=== PATIENT | male | born 1930 | race Caucasian/White ===

== ENCOUNTER → 2016-07-26 | Outpatient (CLI) | payer MEDICARE ==
[~2016-07-26] MED LIST: ACID1TAB7 PO; AMOX1TAB12 PO; ASPI-621 PO; ATOR40TA78 PO; CHOL400T2 PO; FENO160T PO; FLUT1AER INH; FURO-93 PO; GABA300C10 PO; HYDR-3343 PO; IPRA3AMP HHN; LISI-467 PO; LUTE20TA PO; METO25TA35 PO; MULT-464 PO; OMEG500C3 PO; OMEP-110 PO; POTA10CA PO; PRED5TAB PO; SUCR1ORA2 PO; TEMA15CA6 PO; TERA5CAP3 PO; TICA90TA PO; TIOT18CA INH; TRAM50TA2 PO; WARF5TAB7 PO; ZINC50TA28 PO
== END | disposition home or self-care (01) ==
LOC: CFH 14:21
PROVIDERS: ATTEND Internal Medicine Critical Care Medicine
DX: J44.9 Chronic obstructive pulmonary disease, unspecified (principal)
CPT/HCPCS: 71020

== ENCOUNTER → 2016-11-05 | Outpatient (CLI) | payer MEDICARE | END | disposition home or self-care (01) | LOC: RAD 09:58 | PROVIDERS: ATTEND Nurse Practitioner Family | DX: S33.39XA Dislocation of other parts of lumbar spine and pelvis, initial encounter (principal); M47.896 Other spondylosis, lumbar region; M25.78 Osteophyte, vertebrae; M41.86 Other forms of scoliosis, lumbar region; Z98.1 Arthrodesis status; X58.XXXA Exposure to other specified factors, initial encounter; Y93.89 Activity, other specified; Y92.89 Other specified places as the place of occurrence of the external cause; Y99.8 Other external cause status | CPT/HCPCS: 72110 ==

== ENCOUNTER → 2017-09-18 | Outpatient (CLI) | payer MEDICARE ==
[~2017-09-18] MED LIST changes: -SUCR1ORA2 PO; +SUCR1ORA5 PO; +WARF-36 PO; -WARF5TAB7 PO
== END | disposition home or self-care (01) ==
LOC: CFH 10:54
PROVIDERS: ATTEND Nurse Practitioner Family
DX: S53.145D Lateral dislocation of left ulnohumeral joint, subsequent encounter (principal); W19.XXXD Unspecified fall, subsequent encounter

== ENCOUNTER → 2020-03-04 | Outpatient (CLI) | payer MEDICARE ==
[~2020-03-04] MED LIST changes: -ASPI-621 PO; +ASPI81TA45 PO; -IPRA3AMP HHN; +IPRA3AMP30 HHN; +OMNIPAQUE 350 MG/ML, 100ML BOTTLE ONE; -ZINC50TA28 PO; +ZINC50TA44 PO
[2020-03-04 12:26] LABS: CREATININE 1.18 mg/dL (0.7-1.3)
== END | disposition home or self-care (01) ==
LOC: RAD 11:32
PROVIDERS: ATTEND Nurse Practitioner Family
DX: I70.0 Atherosclerosis of aorta (principal); N20.0 Calculus of kidney; M47.817 Spondylosis without myelopathy or radiculopathy, lumbosacral region; M48.07 Spinal stenosis, lumbosacral region; K57.30 Diverticulosis of large intestine without perforation or abscess without bleeding
CPT/HCPCS: 36415; 74174; 82565; Q9967